=== PATIENT | male | born 1945 | race Caucasian/White ===

== ENCOUNTER → 2017-08-29 | Outpatient (CLI) | payer MEDICARE, BC ==
[~2017-08-29] MED LIST: LIPITOR40 MG PO; TOPROL XL100 MG PO
== END | disposition home or self-care (01) ==
LOC: CDC 13:06
DX: Z01.810 Encounter for preprocedural cardiovascular examination (principal); N20.0 Calculus of kidney; R00.1 Bradycardia, unspecified; I44.0 Atrioventricular block, first degree; R94.31 Abnormal electrocardiogram [ECG] [EKG]
CPT/HCPCS: 93000